=== PATIENT | female | born 1950 | race Caucasian/White ===

== ENCOUNTER 2018-06-12 09:00 | Day surgery (SDC) | payer MEDICARE, OTHER, SELFPAY ==
--- NOTE | 2018-06-08 09:53 | PM.PREOP ---
Pre-operative Note Interval Note History & Physical reviewed/Exam performed by Physician: Yes Changes to H&P: No
--- NOTE | 2018-06-08 09:54 | P.OP_ITS ---
Operative Date/Time/Diagnoses Date of procedure: 06/12/18 Time of procedure: 10:45 Procedure & Clinicians Procedure: Preoperative diagnoses: 1. Left nuclear sclerotic and cortical cataract. 2. Controlled diabetes with glucose 165 day of surgery. Postoperative diagnoses: 1. Cataract removed by phacoemulsification with placement of posterior chamber intraocular lens. Procedure: Phacoemulsification with posterior chamber intraocular lens implant Surgeon: Martha Yepez MD Complications: None Specimen: None Implant: ZCBOO+22.0,myopic target -2.00 Blood loss: None Anesthesia: Retrobulbar with monitored standby Description of procedure: Patient presents with a complaint of decreased vision due to cataract which is affecting activities of daily living. The patient wants surgery to improve vision. The patient was taken to the operating room and given IV sedation. A retrobulbar block consisting of 6 cc of 2% xylocaine without epinephrine mixed half and half with 0.5% Marcaine with 1 cc of hyaluronidase added is placed between the medial and lateral 1/3 of the inferior orbital rim. Lid akinesia is obtain with 1% xylocaine with epinephrine infiltrated along the lid margin. The eye is manually massaged for 30 sec, prepped using Betadine solution, and draped in the usual sterile fashion. Temporal approach was made, a 1 mm side-port incision was made 90? from the proposed clear corneal incision position. Phenylephrine 1.5% mixed with 1% xylocaine 0.2 cc was placed into the anterior chamber. an air bubble was placed followed by visudyne capsular dye to improve visibility due to diffuse cortical changes. Viscoat followed by Healon was then placed. A 2.6 mm clear incision with a 2.6 mm blade was placed. A 360 degree capsulorrhexis style capsulotomy was then performed with a cystitome needle on a Healon. Hydrodelineation and hydrodissection were performed. The phacoemulsification unit is introduced, and sculpting notice used to groove the central lens. It is then removed in chopping mode. Epi nucleus is removed with epinuclear mode and irrigation aspiration was used to remove the peripheral cortex. The posterior capsule is polished. The intraocular lens is selected, inspected, power confirmed, and placed in the po sterior chamber. The pupil was constricted with Miostat.. The wound was stromally hydrated and tested for leaks, there was none and it was left sutureless. Vigamox 0.1 cc was placed into the anterior chamber. Kenalog 0.2 cc was placed in the superior subconjunctival space. A drop of antibiotic and was placed and the eye was patched and shielded. The patient was stable and returned to the recovery room in excellent condition. Dictated by: Martha Yepez MD Copy to: [facility]
[2018-06-12 09:18] VITALS: BP 121/73; PULSE 87; RESP 16; TEMP 36.2; O2SAT 99
[2018-06-12 09:20] VITALS: BMI 28.8
[2018-06-12] MEDS: PROPARACAINE 0.5% OPHTH SOL 2 DROPS EYE-OP (09:26)
[2018-06-12] MEDS: CATARACT EYE COMPOUND (10 DROPS/SYRINGE) 3 DROPS EYE-OP (09:31)
--- NOTE | 2018-06-12 10:46 | SUR.OPER ---
Supine on eye stretcher, head on extension cradle secured with tape. Arms tucked at sides with blanket. Pillow under knees.
[2018-06-12] MEDS: PHENYLEPHRINE/LIDOCAINE VIAL (OR) 0.2 ML EYE-OP (11:37)
[2018-06-12] MEDS: MOXIFLOXACIN OPHTH DROPS 3 ML BOTTLE 2 DROPS INJ (11:42)
[2018-06-12] MEDS: CHONDROIDTIN/SOD HYALURONATE 1.05 ML SYRINGE INTRAOCULA (11:43)
[2018-06-12] MEDS: TRIAMCINOLONE 50 MG/5 ML VIAL INJ (11:43)
[2018-06-12] MEDS: BALANCED SALT IRRIG SOLN NO.2 15 ML IRR (11:44)
[2018-06-12] MEDS: NEOMYCIN/POLY/DEX OPHTH OINT 1 APPLIC EYE-LEFT (11:45)
[2018-06-12] MEDS: HYALURONATE SODIUM 10 MG/ML SYRINGE INJ (11:45)
[2018-06-12] MEDS: CARBACHOL 1.5 ML VIAL INJ (11:45)
[2018-06-12] MEDS: OFLOXACIN 0.3% OPHTH 5 ML 2 DROPS EYE-LEFT (11:46)
[2018-06-12] MEDS: TRYPAN BLUE 0.5 ML SYRINGE INJ (11:46)
[2018-06-12] MEDS: LIDOCAINE 2% 4 ML, BUPIVACAINE 0.5% (PF) 4 ML, HYALURONIDASE 150 UNIT INJ (11:47)
[2018-06-12] MEDS: BALANCED SALT IRRIG SOLN NO.2 500 ML, EPINEPHrine 1 MG IRR (11:47)
[2018-06-12] MEDS: LIDOCAINE 1% W/EPI INJ 20 ML INJ (11:48)
[2018-06-12 12:00] VITALS: BP 129/76; PULSE 85; RESP 18; TEMP 37.1; O2SAT 98
== END 2018-06-12 12:05 | disposition home or self-care (01) ==
LOC: OR 09:04
PROVIDERS: PCP Nurse Practitioner; Visit Provider Ophthalmology
DX: H25.812 Combined forms of age-related cataract, left eye (principal); E11.9 Type 2 diabetes mellitus without complications; Z79.84 Long term (current) use of oral hypoglycemic drugs; I10 Essential (primary) hypertension; E78.5 Hyperlipidemia, unspecified
CPT/HCPCS: J0171; J2704; J3301; J3470

== ENCOUNTER 2018-06-26 08:44 | Day surgery (SDC) | payer MEDICARE, OTHER, SELFPAY ==
--- NOTE | 2018-06-22 12:16 | PM.PREOP ---
Pre-operative Note Interval Note History & Physical reviewed/Exam performed by Physician: Yes Changes to H&P: No
--- NOTE | 2018-06-22 12:20 | P.OP_ITS ---
Operative Date/Time/Diagnoses Date of procedure: 06/26/18 Time of procedure: 09:45 Procedure & Clinicians Procedure: Preoperative diagnoses: 1. Right nuclear sclerotic and cortical cataract. 2. Type 2 diabetes. Postoperative diagnoses: 1. Cataract removed by phacoemulsification with placement of posterior chamber intraocular lens. Procedure: Phacoemulsification with posterior chamber intraocular lens implant Surgeon: Martha Yepez MD Complications: None Specimen: None Implant: ZCBOO+21.0 -1.00 target Blood loss: None Anesthesia: Retrobulbar with monitored standby Description of procedure: Patient presents with a complaint of decreased vis ion due to cataract which is affecting activities of daily living. The patient wants surgery to improve vision. The patient was taken to the operating room and given IV sedation. A retrobulbar block consisting of 6 cc of 2% xylocaine without epinephrine mixed half and half with 0.5% Marcaine with 1 cc of hyaluronidase added is placed between the medial and lateral 1/3 of the inferior orbital rim. Lid akinesia is obtain with 1% xylocaine with epinephrine infiltrated along the lid margin. The eye is manually massaged for 30 sec, prepped using Betadine solution, and draped in the usual sterile fashion. Temporal approach was made, a 1 mm side-port incision was made 90? from the proposed clear corneal incision position. Phenylephrine 1.5% mixed with 1% xylocaine 0.2 cc was placed into the anterior chamber. there was for poor visibility due to diffuse cortical cataract so an air bubble was placed followed by vision dye, Viscoat followed by Healon was then placed. A 2.6 mm clear in cision with a 2.6 mm blade was placed. A 360 degree capsulorrhexis style capsulotomy was then performed with a cystitome needle on a Healon greatly aided by the capsular dye. Hydrodelineation and hydrodissection were performed. The phacoemulsification unit is introduced, and sculpting notice used to groove the central lens. It is then removed in chopping mode. Epi nucleus is removed with epinuclear mode and irrigation aspiration was used to remove the peripheral cortex. The posterior capsule is polished. The intraocular lens is selected, inspected, power confirmed, and placed in the posterior chamber. The pupil was constricted with Miostat.. The wound was stromally hydrated and tested for leaks, there was none and it was left sutureless. Vigamox 0.1 cc was placed into the anterior chamber. Kenalog 0.2 cc was placed in the superior subconjunctival space. A drop of antibiotic and was placed and the eye was patched and shielded. The patient was stable and returned to the recovery room in excellent condition. Dictated by: Martha Yepez MD Copy to: [facility]
[2018-06-26 08:56] VITALS: BP 142/79; PULSE 87; RESP 16; TEMP 36.5; O2SAT 96; BMI 28.8
[2018-06-26] MEDS: PROPARACAINE 0.5% OPHTH SOL 2 DROPS EYE-OP (09:04)
[2018-06-26] MEDS: CATARACT EYE COMPOUND (10 DROPS/SYRINGE) 3 DROPS EYE-OP (09:06)
[2018-06-26] MEDS: LIDOCAINE 1% W/EPI INJ 20 ML INJ (09:52)
[2018-06-26] MEDS: CHONDROIDTIN/SOD HYALURONATE 1.05 ML SYRINGE INTRAOCULA (09:52)
[2018-06-26] MEDS: BALANCED SALT IRRIG SOLN NO.2 15 ML IRR (09:52)
[2018-06-26] MEDS: CARBACHOL 1.5 ML VIAL INJ (09:52)
[2018-06-26] MEDS: HYALURONATE SODIUM 10 MG/ML SYRINGE INJ (09:52)
[2018-06-26] MEDS: MOXIFLOXACIN OPHTH DROPS 3 ML BOTTLE 2 DROPS INJ (09:53)
[2018-06-26] MEDS: NEOMYCIN/POLY/DEX OPHTH OINT 1 APPLIC EYE-RIGHT (09:53)
[2018-06-26] MEDS: OFLOXACIN 0.3% OPHTH 5 ML 2 DROPS EYE-RIGHT (09:54)
[2018-06-26] MEDS: PHENYLEPHRINE/LIDOCAINE VIAL (OR) 0.2 ML EYE-OP (09:54)
[2018-06-26] MEDS: TRIAMCINOLONE 50 MG/5 ML VIAL INJ (09:54)
[2018-06-26] MEDS: LIDOCAINE 2% 4 ML, BUPIVACAINE 0.5% (PF) 4 ML, HYALURONIDASE 150 UNIT INJ (09:55)
[2018-06-26] MEDS: TRYPAN BLUE 0.5 ML SYRINGE INJ (09:55)
[2018-06-26] MEDS: BALANCED SALT IRRIG SOLN NO.2 500 ML, EPINEPHrine 1 MG IRR (09:55)
[2018-06-26 10:22] VITALS: BP 132/80; PULSE 71; RESP 16; TEMP 36.2; O2SAT 100
--- NOTE | 2018-06-26 10:36 | SUR.PHASEII ---
1035 Came to [facility] A&O, fluids given, denies pain. Spouse to bedside. This is her 2nd cataract surgery; comfortable with post-op process, denied any questions/concerns.
== END 2018-06-26 10:36 | disposition home or self-care (01) ==
LOC: OR 08:48
PROVIDERS: PCP Nurse Practitioner; Visit Provider Ophthalmology
DX: H25.811 Combined forms of age-related cataract, right eye (principal); E11.9 Type 2 diabetes mellitus without complications; Z79.84 Long term (current) use of oral hypoglycemic drugs; I10 Essential (primary) hypertension; E78.5 Hyperlipidemia, unspecified
CPT/HCPCS: J0171; J2250; J2704; J3010; J3301; J3470

== ENCOUNTER → 2020-01-07 11:56 | Outpatient (CLI) | payer MEDICARE, OTHER, SELFPAY ==
--- NOTE | 2020-01-07 12:48 | DIET.PN ---
Diabetes Intake: Initial Assessment Assess: 69 YOF referred for type 2 diabetes. She has long standing hx but admits she fluctuates with her control. Reports a strong family hx. Has previously had formal diabetes education approx. 20 yrs ago at diagnosis. Is not currently checking her blood glucose. Would like to get a CGM. Currently following the NOOM diet which some success. 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 Labs: Per pt report: A1c: 9.0 Meds: Diet: per 24 hr recall: B: egg scramble; wheat toast w/ avocado; non-fat gr yog w/ fruit; chex cereal L: turk sandwich w/ veg, fruit; leftovers; veg soup D: hamb darlene w/ zack, avoc, brussel sprouts; buckwheat ndles w/ pean sauce Sn: grapes; almonds; crackers; popsicles Wt: 190lb Ht: 67in BMI: 29.8 Exercise: 1500 steps /day DX: Altered nutrition related laboratory values related to impaired glucose metabolism, lack of previous exposure to nutrition information as evidenced by pt report, diagnosis of diabetes, previous diet high in refined carbohydrates. Intervention: 1. Completed intake assessment. Discussed barriers to care. 2. Discussed pathophysiology of diabetes. Reviewed A1c and its correlation to blood glucose numbers. Discussed recommended BG ranges. 3. Discussed importance of self-monitoring, how often, and when to check. Provided demonstration on use of glucometer. 4. Reviewed hyper/hypoglycemia and treatment. 5. Reviewed safe disposal of equipment (strip/lancets/insulin needles). 6. Created SMART goals for pt self-care and success. 7. Discussed program curriculum outline and class needs based on individual goals. SMART Goals: 1. Pt would like to lose 10 lb (5% body weight) in the next 3 mo through dietary changes and exercising daily. Monitor/Evaluate: Pt will attend full DSME program. nutrition class scheduled for Feb 02.
== END ==
PROVIDERS: PCP Nurse Practitioner; Referring Provider Internal Medicine; Visit Provider Internal Medicine
DX: E11.9 Type 2 diabetes mellitus without complications (principal)
CPT/HCPCS: G0108